=== PATIENT | female | born 1935 | race Two or more races ===

== ENCOUNTER 2024-07-13 04:45 | Inpatient (IN) | payer MEDICARE, OTHER ==
[~2024-07-13] VITALS: Ht 157.5 cm; Wt 51.7 kg
[2024-07-13 05:45] LABS: BASOPHILS # (AUTO) 0.1 K/uL (0.0-0.2); BASOPHILS % (AUTO) 0.8 % (0.0-2.0); EOSINOPHILS # (AUTO) 0.2 K/uL (0.0-0.7); EOSINOPHILS % (AUTO) 1.9 % (0.0-6.0); HEMATOCRIT 34 % (33-45); HEMOGLOBIN 11.6 g/dL (11.5-14.8); LYMPHOCYTES % (AUTO) 23.4 % (20.0-44.0); MEAN CORPUSCULAR HEMOGLOBIN 29 PG (26.0-33.0); MEAN CORPUSCULAR HGB CONC 34 g/dl (31.0-36.0); MEAN CORPUSCULAR VOLUME 87 fL (82-100); MONOCYTES # (AUTO) 0.5 K/uL (0.1-1.30); MONOCYTES % (AUTO) 5.2 % (2.0-12.0); NEUTROPHILS % (AUTO) 68.7 % (43.0-81.0); PLATELET COUNT (AUTO) 359 K/uL (150-450); RED BLOOD CELL COUNT(AUTO) 3.96 MIL/uL (4.0-5.2); RED CELL DISTRIBUTION WIDTH 16.1 % (11.5-15.0); WHITE BLOOD COUNT (AUTO) 8.7 K/uL (4.3-11.0)
[2024-07-13 05:56] LABS: CALCIUM, SERUM 9.4 mg/dL (8.5-10.1); CARBON DIOXIDE 26 mmol/L (21-32); CHLORIDE 104 mmol/L (98-107); CREATININE 0.8 mg/dL (0.6-1.3); GLUCOSE 95 mg/dL (74-106); POTASSIUM 4.3 mmol/L (3.5-5.1); SODIUM SERUM 135 mmol/L (136-145); UREA NITROGEN, BLOOD 29 mg/dL (7-18)
[2024-07-13 06:09] LABS: ALANINE AMINOTRANSFERASE 17 U/L (12-78); ALBUMIN 2.8 g/dL (3.4-5.0); ALKALINE PHOSPHATASE 64 U/L (46-116); ASPARTATE AMINOTRANSFERASE 18 U/L (15-37); BILIRUBIN,DIRECT 0.2 mg/dL (0.0-0.2); BILIRUBIN,TOTAL 0.8 mg/dL (0.2-1.0); NT-PRO BNP 281 pg/mL (0-125); TOTAL PROTEIN, SERUM 7.5 g/dL (6.4-8.2)
[2024-07-13] MEDS ORDERED: MORPHINE SULFATE INJ 2 MG/ML DISP.SYRIN IV PRN (06:30)
[2024-07-13] MEDS: ENOXAPARIN SODIUM 40 MG/0.4 ML DISP.SYRIN SQ SCH (06:30)
[2024-07-13] MEDS ORDERED: hydrALAZINE HCL IV 20 MG VIAL IV PRN (06:30)
[2024-07-13] MEDS ORDERED: ONDANSETRON HCL/PF 4 MG/2 ML VIAL IVP PRN (06:30)
[2024-07-13] MEDS ORDERED: ENOXAPARIN SODIUM 40 MG/0.4 ML DISP.SYRIN SQ ONE (06:38)
[2024-07-13 07:16] LABS: THYROID STIMULATING HORMONE 4.11 uIU/mL (0.358-3.74)
[2024-07-13] MEDS ORDERED: TIMO5DRO35 EACHEYE (07:33)
[2024-07-13] MEDS ORDERED: GABA-532 PO (07:33)
[2024-07-13] MEDS ORDERED: IPRA3AMP23 IH (07:33)
[2024-07-13] MEDS ORDERED: BISA10SU11 RC (07:33)
[2024-07-13] MEDS ORDERED: POLY119P3 PO (07:33)
[2024-07-13] MEDS ORDERED: VIT1CAPS44 PO (07:33)
[2024-07-13] MEDS ORDERED: LATA7.5D EACHEYE (07:33)
[2024-07-13] MEDS ORDERED: MAGN400O6 PO (07:33)
[2024-07-13] MEDS ORDERED: CRAN300T PO (07:33)
[2024-07-13] MEDS ORDERED: VALS320T16 PO (07:33)
[2024-07-13] MEDS ORDERED: ACET-73 PO (07:33)
[2024-07-13] MEDS ORDERED: DOCU100C36 PO (07:33)
[2024-07-13] MEDS ORDERED: LEVO50TA8 PO (07:33)
[2024-07-13] MEDS ORDERED: ACET325T53 PO (07:33)
[2024-07-13] MEDS ORDERED: SODI100037 PO (07:33)
[2024-07-13] MEDS ORDERED: ONDA-97 PO (07:33)
[2024-07-13] MEDS ORDERED: MAGN400T30 PO (07:33)
[2024-07-13] MEDS ORDERED: METO25TA6 PO (07:33)
[2024-07-13] MEDS ORDERED: NA P133E RC (07:33)
[2024-07-13 08:45] VITALS: BP 103/63; TEMP 97.5; O2SAT 96
[2024-07-13 12:05] VITALS: BP 110/76; TEMP 97.6; O2SAT 99
[2024-07-13] MEDS ORDERED: IOHEXOL-350 100 ML VIAL IV ONE (14:41)
[2024-07-13] MEDS ORDERED: IV NS 0.9% 250 ML IV ONE (14:43)
[2024-07-13 16:34] VITALS: BP 117/45; TEMP 97.5; O2SAT 99
[2024-07-13] MEDS: TIMOLOL 0.5% SOLN OPHTH 5 ML BOTTLE EACHEYE SCH (16:45)
[2024-07-13] MEDS: METOPROLOL TARTRATE 25 MG TABLET PO SCH (16:45)
[2024-07-13] MEDS: GABAPENTIN 100 MG CAPSULE PO SCH (16:45)
[2024-07-13 20:00] VITALS: BP 90/50; TEMP 97.5; O2SAT 100
[2024-07-13] MEDS: LATANOPROST EYE DROP 0.005% 2.5 ML BOTTLE EACHEYE SCH (22:24)
[2024-07-14] VITALS: BP 111/47; TEMP 98.1; O2SAT 97
[2024-07-14 04:00] VITALS: BP 109/44; TEMP 97.5; O2SAT 100
[2024-07-14] MEDS: LEVOTHYROXINE SODIUM 50 MCG TABLET PO SCH (06:42)
[2024-07-14 07:17] LABS: BASOPHILS % (AUTO) 0.7 % (0.0-2.0); EOSINOPHILS # (AUTO) 0.3 K/uL (0.0-0.7); EOSINOPHILS % (AUTO) 4.2 % (0.0-6.0); HEMATOCRIT 31 % (33-45); HEMOGLOBIN 10.2 g/dL (11.5-14.8); LYMPHOCYTES # (AUTO) 2.5 K/uL (0.8-4.8); LYMPHOCYTES % (AUTO) 40.7 % (20.0-44.0); MEAN CORPUSCULAR HEMOGLOBIN 29 PG (26.0-33.0); MEAN CORPUSCULAR HGB CONC 33 g/dl (31.0-36.0); MEAN CORPUSCULAR VOLUME 87 fL (82-100); MONOCYTES # (AUTO) 0.4 K/uL (0.1-1.30); MONOCYTES % (AUTO) 6.9 % (2.0-12.0); NEUTROPHILS % (AUTO) 47.5 % (43.0-81.0); PLATELET COUNT (AUTO) 312 K/uL (150-450); RED BLOOD CELL COUNT(AUTO) 3.52 MIL/uL (4.0-5.2); RED CELL DISTRIBUTION WIDTH 16.3 % (11.5-15.0); WHITE BLOOD COUNT (AUTO) 6.2 K/uL (4.3-11.0)
[2024-07-14 07:23] LABS: ALBUMIN 2.5 g/dL (3.4-5.0); BILIRUBIN,TOTAL 0.6 mg/dL (0.2-1.0); CREATININE 0.8 mg/dL (0.6-1.3); PHOSPHORUS 3.8 mg/dL (2.5-4.9); POTASSIUM 4.2 mmol/L (3.5-5.1); TOTAL PROTEIN, SERUM 6.7 g/dL (6.4-8.2)
[2024-07-14 08:00] VITALS: BP 96/45; TEMP 98; O2SAT 99
[2024-07-14] MEDS: VALSARTAN 40 MG TABLET PO SCH (09:00)
[2024-07-14 10:11] LABS: FOLIC ACID 5.1 ng/mL (>3.0)
[2024-07-14 10:50] VITALS: BP 105/49
[2024-07-14] MEDS: VALSARTAN 80 MG TABLET PO SCH (14:00)
[2024-07-14 18:46] VITALS: BP 100/52; TEMP 98.3; O2SAT 98
[2024-07-14 20:11] VITALS: BP 102/47; TEMP 97.5; O2SAT 96
[2024-07-15 01:30] VITALS: BP 121/43; TEMP 97.9; O2SAT 100
[2024-07-15 04:57] VITALS: BP 119/64; TEMP 97.1; O2SAT 100
[2024-07-15 08:00] VITALS: BP 115/46; TEMP 98.1; O2SAT 97
[2024-07-15 12:00] VITALS: BP 95/46; TEMP 98.1; O2SAT 100
[2024-07-15] MEDS: ACETAMINOPHEN 325 MG TABLET PO PRN (12:07)
[2024-07-15 16:00] VITALS: BP 106/62; TEMP 97.3; O2SAT 98
[2024-07-15 20:00] VITALS: BP 105/47; TEMP 98.1; O2SAT 96
[2024-07-16] VITALS: BP 115/48; TEMP 97.5; O2SAT 97
[2024-07-16 04:00] VITALS: BP 105/57; TEMP 98; O2SAT 97
[2024-07-16 08:00] VITALS: BP 102/50; TEMP 97.5; O2SAT 97
[2024-07-16 12:00] VITALS: BP 103/49; TEMP 98; O2SAT 100
[2024-07-16 16:00] VITALS: BP 102/50; TEMP 97.5; O2SAT 98
[2024-07-16 17:00] VITALS: BP 103/49
== END 2024-07-16 18:17 | DRG 312 ==
LOC: ER 04:47 → TELE1 08:37 → MEDSG1 07-15 20:18
DX: I95.1 Orthostatic hypotension (principal); E03.9 Hypothyroidism, unspecified; W19.XXXA Unspecified fall, initial encounter; F03.90 Unspecified dementia, unspecified severity, without behavioral disturbance, psychotic disturbance, mood disturbance, and anxiety; I10 Essential (primary) hypertension; E11.9 Type 2 diabetes mellitus without complications; K59.00 Constipation, unspecified; Z88.2 Allergy status to sulfonamides; Y93.9 Activity, unspecified; Y92.129 Unspecified place in nursing home as the place of occurrence of the external cause; Z98.1 Arthrodesis status; E86.0 Dehydration
CPT/HCPCS: 36415; 70450-TC; 70496-TC; 70498-TC; 71045-TC; 72125-TC; 72170-TC; 80048-TC; 80053-TC; 80076-TC; 82550-TC; 82607-TC; 82962-TC; 83735-TC; 83880; 83921; 84100-TC; 84425; 84443-TC; 84484-TC; 85025-TC; 93307-TC; 97110-TC; 97116-TC; 97530-TC; 97535-TC; G0378; J1650; J7050; Q9967